=== PATIENT | female | born 1970 | race Caucasian/White ===

== ENCOUNTER 2018-06-29 09:52 | Emergency (ER) | payer OTHER ==
[2018-06-29] MEDS ORDERED: TRAMADOL HCL 50 MG TAB ONE (12:47)
--- NOTE | 2018-06-29 13:12 | RAD REPORT ---
EXAM DESCRIPTION: RAD - Foot Left 3 View - 06/29/2018 12:01 pm CLINICAL HISTORY: Fall 2 weeks earlier with persistent foot pain COMPARISON: None. FINDINGS: No fracture, dislocation or periosteal reaction. No acute or destructive bony process. Mi nimal degenerative change at the first MTP joint. No pathologic bone process. No plantar or Achilles spurring. No air or foreign body in the soft tissues. IMPRESSION: Negative left foot examination for acute or significant finding.
--- NOTE | 2018-06-29 13:19 | EDPHYS ---
Physician Documentation [facility] Name: Roxane Bhakta Age: 48 yrs Sex: Female : 1970 Arrival Date: 06/29/2018 Time: 09:58 Bed 5 Private MD: ED Physician Chalo Blanco HPI: 06/29 13:00 This 48 yrs old Female presents to ER via Ambulatory with complaints of Right pm1 Knee Injury, Left Foot Injury. 13:00 The patient presents with pain, that is acute. The complaints affect the left foot. pm1 Context: The problem was sustained at home, resulted from a mis-step by the patient, the patient can fully bear weight, the patient is able to ambulate. Modifying factors: The symptoms are alleviated by nothing, the symptoms are aggravated by nothing. Associated signs and symptoms: Pertinent negatives: calf tenderness, fever, numbness, swelling, tingling, vomiting. Severity of symptoms: in the emergency department the symptoms are unchanged. history of right knee buckling. The patient has not recently seen a physician. Two weeks ago the patient was stepping down from her trailer and right knee buckled and she planted her left foot. Patient able to walk and reports her right knee is not bad and she is mainly concerned about her left foot. No head injury, headache, neck pain, LOC. 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 - Social history:: Smoking status: Patient uses tobacco products, smokes one-half pack cigarettes per day. - Ebola Screening: : No symptoms or risks identified at this time. ROS: 13:00 MS/extremity: Positive for pain, of the left foot. pm1 13:00 Constitutional: Negative for fever, chills, and weight loss, Neck: Negative for injury, pain, and swelling, Cardiovascular: Negative for chest pain, palpitations, and edema, Respiratory: Negative for shortness of breath, cough, wheezing, and pleuritic chest pain, Abdomen/GI: Negative for abdominal pain, nausea, vomiting, diarrhea, and constipation, Back: Negative for injury and pain, Skin: Negative for injury, rash, and discoloration. 13:00 Neuro: Negative for headache, weakness, numbness, tingling, and seizure. Exam: 13:00 Constitutional: This is a well developed, well nourished patient who is awake, alert, pm1 and in no acute distress. Head/Face: Normocephalic, atraumatic. Neck: Trachea midline, no thyromegaly or masses palpated, and no cervical lymphadenopathy. Supple, full range of motion without nuchal rigidity, or vertebral point tenderness. No Meningismus. Chest/axilla: Normal chest wall appearance and motion. Nontender with no deformity. No lesions are appreciated. Cardiovascular: Regular rate and rhythm with a normal S1 and S2. No gallops, murmurs, or rubs. Normal PMI, no JVD. No pulse deficits. Respiratory: Lungs have equal breath sounds bilaterally, clear to auscultation and percussion. No rales, rhonchi or wheezes noted. No increased work of breathing, no retractions or nasal flaring. Abdomen/GI: Soft, non-tender, with normal bowel sounds. No distension or tympany. No guarding or rebound. No evidence of tenderness throughout. Back: No spinal tenderness. No costovertebral tenderness. Full range of motion. Skin: Warm, dry with normal turgor. Normal color with no rashes, no lesions, and no evidence of cellulitis. 13:00 Musculoskeletal/extremity: Extremities: grossly normal except: noted in the lateral side of left foot: tenderness, There is no evidence of ecchymosis, erythema, swelling, ROM: intact in all extremities, Circulation is intact in all extremities. Sensation intact. 13:00 Neuro: Orientation: is normal, Motor: moves all fours. Vital Signs: 10:15 BP 117 / 78; Pulse 65; Resp 18; Temp 97.3; Pulse Ox 100% ; Weight 99.79 kg; Height 5 sv ft. 4 in. (162.56 cm); Pain 7/10; 11:37 BP 113 / 58; Pulse 66; Resp 18; Pulse Ox 100% on R/A; hj 10:15 Body Mass Index 37.76 (99.79 kg, 162.56 cm) sv MDM: 10:48 Patient medically screened. pm1 11:05 ED course: Patient offered x-ray of right knee. Patient refused. Patient is only pm1 concerned about her left foot pain, not her knee. 12:49 Data reviewed: vital signs. Data interpreted: Pulse oximetry: on room air is 100 %. pm1 Interpretation: normal. 13:17 Counseling: I had a detailed discussion with the patient and/or guardian regarding: the pm1 historical points, exam findings, and any diagnostic results supporting the discharge/admit diagnosis, radiology results, the need for outpatient follow up, to return to the emergency department if symptoms worsen or persist or if there are any questions or concerns that arise at home. 06/29 11:05 Order name: Foot Left 3 View XRAY; Complete Time: 13:17 pm1 Administered Medications: 12:37 Drug: traMADol 50 mg Route: PO; hj 12:41 Follow up: Response: No adverse reaction; Pain is decreased hj Disposition: 06/29/18 13:18 Discharged to Home. Impression: Other sprain of left foot. - Condition is Stable. - Discharge Instructions: Foot Sprain. - Prescriptions for Tramadol 50 mg Oral Tablet - take 1 tablet by ORAL route every 8 hours as needed; 12 tablet. - Medication Reconciliation Form, Thank You Letter, Prescription Opioid Use form. - Follow up: Emergency Department; When: As needed; Reason: Worsening of condition. Follow up: Private Physician; When: 2 - 3 days; Reason: Recheck today's complaints, Continuance of care, Re-evaluation by your physician. - Problem is new. - Symptoms have improved. Addendum: 07/01/2018 13:25 Co-signature as Attending Physician, Chalo Blanco MD I agree with the assessment and k dr plan of care. Signatures: Dispatcher [employer] EDKetty Benton RN RN sv Rittger, Kevin, MD MD [facility] Taz Marley RN RN Himanshu Blair NP INDEX EDITOR pm1 Corrections: (The following items were deleted from the chart) 06/29 13:26 13:18 06/29/2018 13:18 Discharged to Home. Impression: Other sprain of left foot. hj Condition is Stable. Forms are Medication Reconciliation Form, Thank You Letter, Antibiotic Education, Prescription Opioid Use. Follow up: Emergency Department; When: As needed; Reason: Worsening of condition. Follow up: Private Physician; When: 2 - 3 days; Reason: Recheck today's complaints, Continuance of care, Re-evaluation by your physician. Problem is new. Symptoms have improved. pm1
--- NOTE | 2018-06-29 13:19 | ER ---
Nurse's Notes [facility] Name: Roxane Bhakta Age: 48 yrs Sex: Female : 1970 Arrival Date: 06/29/2018 Time: 09:58 Bed 5 Private MD: Diagnosis: Other sprain of left foot Presentation: 06/29 10:13 Presenting complaint: Patient states: fell about 2 weeks ago and injured her right knee sv and left foot. Transition of care: patient was not received from another setting of care. Onset of symptoms was June 15, 2018. Care prior to arrival: None. 10:13 Method Of Arrival: Ambulatory sv 10:13 Acuity: VADIM 4 sv 10:31 Risk Assessment: Do you want to hurt yourself or someone else?. hj 10:34 Initial Sepsis Screen: Does the patient meet any 2 criteria? No. Patient's initial hj sepsis screen is negative. Does the patient have a suspected source of infection? No. Patient's initial sepsis screen is negative. Triage Assessment: 10:13 General: Appears in no apparent distress. uncomfortable, obese, Behavior is calm, sv cooperative, appropriate for age. Pain: Complains of pain in left foot and right knee Pain currently is 7 out of 10 on a pain scale. Neuro: Level of Consciousness is awake, alert, obeys commands, Oriented to person, place, time, situation, Moves all extremities. Gait is steady. Respiratory: Respiratory effort is even, unlabored, Respiratory pattern is regular, symmetrical. 10:35 Musculoskeletal: Reports pain in right leg and left foot and right knee. Injury hj Description: fall. 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 - Social history:: Smoking status: Patient uses tobacco products, smokes one-half pack cigarettes per day. - Ebola Screening: : No symptoms or risks identified at this time. Screenin:35 Abuse screen: Denies threats or abuse. Denies injuries from another. Nutritional hj screening: No deficits noted. Tuberculosis screening: No symptoms or risk factors identified. Fall Risk Fall in past 12 months (25 points). Assessment: 11:00 Reassessment: see triage assessment;. hj 11:36 Reassessment: Patient and/or family updated on plan of care and expected duration. Pain hj level reassessed. Patient is alert, oriented x 3, equal unlabored respirations, skin warm/dry/pink. awaiting xray;. Vital Signs: 10:15 BP 117 / 78; Pulse 65; Resp 18; Temp 97.3; Pulse Ox 100% ; Weight 99.79 kg; Height 5 sv ft. 4 in. (162.56 cm); Pain 7/10; 11:37 BP 113 / 58; Pulse 66; Resp 18; Pulse Ox 100% on R/A; hj 10:15 Body Mass Index 37.76 (99.79 kg, 162.56 cm) sv ED Course: 09:58 Patient arrived in ED. as 10:13 Triage completed. sv 10:15 Arm band placed on. sv 10:30 Taz Marley RN is Primary Nurse. hj 10:35 Patient has correct armband on for positive identification. Bed in low position. Call hj light in reach. Side rails up X 1. 10:48 Himanshu Ruiz NP is PHCP. pm1 10:48 Chalo Blanco MD is Attending Physician. pm1 12:01 Foot Left 3 View XRAY In Process Unspecified. EDMS 13:25 No provider procedures requiring assistance completed. Patient did not have IV access hj during this emergency room visit. Administered Medications: 12:37 Drug: traMADol 50 mg Route: PO; hj 12:41 Follow up: Response: No adverse reaction; Pain is decreased hj Outcome: 13:18 Discharge ordered by . pm1 13:26 Discharged to home ambulatory. hj 13:26 Condition: stable 13:26 Discharge instructions given to patient, Instructed on discharge instructions, follow up and referral plans. medication usage, Demonstrated understanding of instructions, follow-up care, medications, Prescriptions given X 1. 13:26 Patient left the ED. hj Signatures: Dispatcher [employer] EDMS Ketty Chery RN RN sv Martinez, Amelia as Joaquin, Henry, RN RN hj Marinas, Patrick, NP CRANE CREW SUPERVISOR pm1
== END 2018-06-29 13:26 | disposition home or self-care (01) ==
LOC: ER 09:52
DX: S93.692A Other sprain of left foot, initial encounter (principal); X58.XXXA Exposure to other specified factors, initial encounter; Y93.01 Activity, walking, marching and hiking; Y92.89 Other specified places as the place of occurrence of the external cause; N18.6 End stage renal disease; F17.210 Nicotine dependence, cigarettes, uncomplicated; Z88.1 Allergy status to other antibiotic agents; Z88.3 Allergy status to other anti-infective agents; Z85.3 Personal history of malignant neoplasm of breast; Z85.41 Personal history of malignant neoplasm of cervix uteri; Z90.13 Acquired absence of bilateral breasts and nipples
CPT/HCPCS: 99283

== ENCOUNTER 2018-07-05 17:36 | Observation (INO) | payer OTHER ==
[2018-07-05 18:54] LABS: Absolute Lymphocytes (CBC) 0.7 K/uL (0.7-4.9); Absolute Monocytes 0.3 K/uL (0.1-1.3); Absolute Neutrophil 1.8 K/uL (1.8-8.0); Basophils % 1.2 % (0-1.3); Eosinophils % 3.4 % (0-4.4); Lymphocytes % 25.4 % (15.3-44.8); MCH 21.7 pg (27.0-35.0); MCV 71.6 fL (80-100); MPV 9.7 fL (7.6-11.3); Monocytes % 10.3 % (3.3-12.3); RBC Red Blood Cell Count 2.78 M/uL (3.86-4.86)
[2018-07-05 18:57] LABS: Hematocrit 19.9 % (36.0-45.0)
[2018-07-05 18:59] LABS: Albumin 3.3 g/dL (3.4-5.0); Bilirubin Direct 0.3 mg/dL (0-0.2); Bilirubin Total 0.8 mg/dL (0.2-1.0); Potassium 3.7 mmol/L (3.5-5.1); Protein, Total 7.1 g/dL (6.4-8.2)
[2018-07-05 19:38] LABS: Anisocytosis 1+; Blood Morphology Comment NOTED (NOT SEEN); Hypochromasia 1+; Platelet Estimate DECR
[2018-07-05 19:40] LABS: Elliptocytes 1+; Poikilocytosis 1+; Polychromasia SLIGHT; Spherocyte FEW
--- NOTE | 2018-07-05 19:50 | ER ---
Nurse's Notes [facility] Name: Roxane Bhakta Age: 48 yrs Sex: Female : 1970 Arrival Date: 07/05/2018 Time: 17:39 Bed 8 Private MD: out of town, doctor Diagnosis: Acute Anemia ;Other cirrhosis of liver-Non alcoholic steatohepetosis Presentation: 07/05 17:51 Presenting complaint: Patient states: Reports that she was told to come to nearest ER aj for blood transfusion after having low HGB 5.8, and PLT 45 reported by her GI doctor. Denies blood in stool or dizziness. Transition of care: patient was not received from another setting of care. Onset of symptoms was July 05, 2018. Risk Assessment: Do you want to hurt yourself or someone else? Patient reports no desire to harm self or others. Initial Sepsis Screen: Does the patient meet any 2 criteria? No. Patient's initial sepsis screen is negative. Does the patient have a suspected source of infection? No. Patient's initial sepsis screen is negative. Care prior to arrival: None. 17:51 Method Of Arrival: Ambulatory 17:51 Acuity: VADIM 3 Triage Assessment: 17:53 General: Appears in no apparent distress. comfortable, Behavior is calm, cooperative, aj appropriate for age. Pain: Denies pain. Neuro: Level of Consciousness is awake, alert, obeys commands, Oriented to person, place, time, situation, Appropriate for age. Respiratory: Airway is patent Respiratory effort is even, unlabored, Respiratory pattern is regular, symmetrical. GI: Abdomen is round. Derm: Skin is intact, is healthy with good turgor, Skin is pink, warm \T\ dry. normal. 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 - Social history:: Smoking status: Patient uses tobacco products, smokes one-half pack cigarettes per day. - Ebola Screening: : Patient negative for fever greater than or equal to 101.5 degrees Fahrenheit, and additional compatible Ebola Virus Disease symptoms Patient denies exposure to infectious person Patient denies travel to an Ebola-affected area in the 21 days before illness onset No symptoms or risks identified at this time. Screenin:19 Abuse screen: Denies threats or abuse. Denies injuries from another. Nutritional bp screening: No deficits noted. Tuberculosis screening: No symptoms or risk factors identified. Fall Risk None identified. Assessment: 18:14 General: Appears in no apparent distress. comfortable, obese, Behavior is calm, bp cooperative, appropriate for age. Pain: Denies pain. Neuro: Level of Consciousness is awake, alert, obeys commands, Oriented to person, place, time, situation, Appropriate for age. Cardiovascular: Rhythm is sinus rhythm. Respiratory: Airway is patent Respiratory effort is even, unlabored, Respiratory pattern is regular, symmetrical. GI: No signs and/or symptoms were reported involving the gastrointestinal system. : No signs and/or symptoms were reported regarding the genitourinary system. EENT: No deficits noted. Derm: No signs and/or symptoms reported regarding the dermatologic system. Musculoskeletal: Circulation, motion, and sensation intact. Range of motion: intact in all extremities. 18:37 Reassessment: ALL CURRENT ORDERS COMPLETED, RESULTS PENDING. bp Vital Signs: 17:53 BP 153 / 70; Pulse 95; Resp 19; Temp 97.6; Pulse Ox 100% on R/A; Weight 99.79 kg; aj Height 5 ft. 4 in. (162.56 cm); 18:37 BP 135 / 67; Pulse 84; Resp 14; Pulse Ox 100% ; bp 17:53 Body Mass Index 37.76 (99.79 kg, 162.56 cm) aj ED Course: 17:39 Patient arrived in ED. mr 17:39 out of town, doctor is Private Physician. mr 17:52 Triage completed. aj 17:53 Arm band placed on right wrist. Patient placed in an exam room. aj 17:58 Daljit Patel, ISMAEL is Primary Nurse. bp 18:01 Leobardo Sabillon PA is PHCP. jr8 18:01 Rafael Riddle MD is Attending Physician. jr8 18:14 Inserted saline lock: 20 gauge in left antecubital area, using aseptic technique. Blood bp collected. 18:19 Patient has correct armband on for positive identification. Placed in gown. Bed in low bp position. Call light in reach. Side rails up X2. 19:49 Shannen Jacobsen MD is Hospitalizing Provider. jr8 Administered Medications: No medications were administered Outcome: 19:50 Decision to Hospitalize by Provider. jr8 21:32 Patient left the ED. fc Signatures: Nguyen Das, ISMAEL RN Emerald Islas Felicia, RN RN fc Leobardo Sabillon PA PA jr8 Daljit Patel, ISMAEL RN bp
--- NOTE | 2018-07-05 19:50 | EDPHYS ---
Physician Documentation [facility] Name: Roxane Bhakta Age: 48 yrs Sex: Female : 1970 Arrival Date: 07/05/2018 Time: 17:39 Bed 8 Private MD: out of town, doctor ED Physician Rafael Riddle HPI: 07/05 19:43 This 48 yrs old Female presents to ER via Ambulatory with complaints of jr8 Abnormal Lab Results. 19:43 Patient sent by PCP for Hgb check. Stated that it was low along with her platelet jr8 count. History of cirrhosis of the liver secondary to KNIGHT. Has had banding and upper GI bleed in past an has had to have transfusion. Stated that other then mild fatigue feels about baseline. Denies gross lower GI bleeding, hematemesis, or black tarry stools . Severity of symptoms: At their worst the symptoms were mild in the emergency department the symptoms are unchanged. The patient has experienced a previous episode. The patient has not recently seen a physician. 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 - Social history:: Smoking status: Patient uses tobacco products, smokes one-half pack cigarettes per day. - Ebola Screening: : Patient negative for fever greater than or equal to 101.5 degrees Fahrenheit, and additional compatible Ebola Virus Disease symptoms Patient denies exposure to infectious person Patient denies travel to an Ebola-affected area in the 21 days before illness onset No symptoms or risks identified at this time. ROS: 19:43 Eyes: Negative for injury, pain, redness, and discharge, ENT: Negative for injury, jr8 pain, and discharge, Neck: Negative for injury, pain, and swelling, Cardiovascular: Negative for chest pain, palpitations, and edema, Respiratory: Negative for shortness of breath, cough, wheezing, and pleuritic chest pain, Abdomen/GI: Negative for abdominal pain, nausea, vomiting, diarrhea, and constipation, Back: Negative for injury and pain, MS/Extremity: Negative for injury and deformity, Skin: Negative for injury, rash, and discoloration, Neuro: Negative for headache, weakness, numbness, tingling, and seizure. Exam: 19:43 Eyes: Pupils equal round and reactive to light, extra-ocular motions intact. Lids and jr8 lashes normal. Conjunctiva and sclera are non-icteric and not injected. Cornea within normal limits. Periorbital areas with no swelling, redness, or edema. ENT: Nares patent. No nasal discharge, no septal abnormalities noted. Tympanic membranes are normal and external auditory canals are clear. Oropharynx with no redness, swelling, or masses, exudates, or evidence of obstruction, uvula midline. Mucous membranes moist. Neck: Trachea midline, no thyromegaly or masses palpated, and no cervical lymphadenopathy. Supple, full range of motion without nuchal rigidity, or vertebral point tenderness. No Meningismus. Cardiovascular: Regular rate and rhythm with a normal S1 and S2. No gallops, murmurs, or rubs. Normal PMI, no JVD. No pulse deficits. 2 + lower extremity edema Respiratory: Lungs have equal breath sounds bilaterally, clear to auscultation and percussion. No rales, rhonchi or wheezes noted. No increased work of breathing, no retractions or nasal flaring. Abdomen/GI: Soft, non-tender, with normal bowel sounds. No distension or tympany. No guarding or rebound. No evidence of tenderness throughout. Back: No spinal tenderness. No costovertebral tenderness. Full range of motion. MS/ Extremity: Pulses equal, no cyanosis. Neurovascular intact. Full, normal range of motion. Neuro: Awake and alert, GCS 15, oriented to person, place, time, and situation. Cranial nerves II-XII grossly intact. Motor strength 5/5 in all extremities. Sensory grossly intact. Cerebellar exam normal. Normal gait. 19:43 Skin: Appearance: Color: normal in color, dusky, Temperature: normal temperature, Moisture: normal moisture. Vital Signs: 17:53 BP 153 / 70; Pulse 95; Resp 19; Temp 97.6; Pulse Ox 100% on R/A; Weight 99.79 kg; aj Height 5 ft. 4 in. (162.56 cm); 18:37 BP 135 / 67; Pulse 84; Resp 14; Pulse Ox 100% ; bp 17:53 Body Mass Index 37.76 (99.79 kg, 162.56 cm) aj MDM: 18:01 Patient medically screened. 8 19:46 Data reviewed: vital signs, nurses notes, lab test result(s). Data interpreted: Pulse jr8 oximetry: on room air is 100 %. Interpretation: normal. Counseling: I had a detailed discussion with the patient and/or guardian regarding: the historical points, exam findings, and any diagnostic results supporting the discharge/admit diagnosis, lab results, the need for further work-up and treatment in the hospital. Physician consultation: Shannen Jacobsen MD was called at 19:46, was contacted at 19:46, regarding admission, to the medical/surgical unit. consult, patient's condition, and will see patient would like consultation with Dr. Louie. 07/05 18:02 Order name: Basic Metabolic Panel; Complete Time: 19:05 rust 07/05 18:02 Order name: CBC with Diff; Complete Time: 19:41 rust 07/05 18:02 Order name: Creatinine for Radiology; Complete Time: 19:05 rust 07/05 18:02 Order name: Hepatic Function; Complete Time: 19:05 rust 07/05 18:02 Order name: Lipase; Complete Time: 19:05 rust 07/05 18:02 Order name: TS rust 07/05 18:02 Order name: IV Saline Lock; Complete Time: 18:20 rust 07/05 18:02 Order name: Labs collected and sent; Complete Time: 18:20 rust 07/05 19:34 Order name: Manual Differential; Complete Time: 19:41 EDFL 07/05 19:40 Order name: Packed RBC Leukored -1 EDFL 07/05 19:59 Order name: ABO/RH no charge; Complete Time: 20:12 EDFL 07/05 20:20 Order name: CONS Physician Consult EDMS Administered Medications: No medications were administered Disposition: 07/06 07:19 Co-signature as Attending Physician, Rafael Riddle MD. rn Disposition: 07/05/18 19:50 Hospitalization ordered by Shannen Jacobsen for Observation. Preliminary diagnosis are Acute Anemia , Other cirrhosis of liver - Non alcoholic steatohepetosis . - Bed requested for Telemetry/MedSurg (observation). - Status is Observation. fc - Condition is Stable. - Problem is new. - Symptoms are unchanged. UTI on Admission? No Signatures: Dispatcher [employer] EDFL Rere Chau RN ISMAEL Nguyen Das RN Angie Cordova RN RN Rafael Riddle MD MD rn Roszak, Josh, PA PA jr8 Corrections: (The following items were deleted from the chart) 07/05 19:34 18:58 CBC Smear Scan ordered. EDFL EDFL 19:58 19:50 Hospitalization Ordered by Shannen Jacobsen MD for Observation. Preliminary mw diagnosis is Acute Anemia ; Other cirrhosis of liver - Non alcoholic steatohepetosis . Bed requested for Telemetry/MedSurg (observation). Status is Observation. Condition is Stable. Problem is new. Symptoms are unchanged. UTI on Admission? No. jr8 21:32 19:58 07/05/2018 19:50 Hospitalization Ordered by Shannen Jacobsen MD for Observation. fc Preliminary diagnosis is Acute Anemia ; Other cirrhosis of liver - Non alcoholic steatohepetosis . Bed requested for Telemetry/MedSurg (observation). Status is Observation. Condition is Stable. Problem is new. Symptoms are unchanged. UTI on Admission? No. mw
--- NOTE | 2018-07-05 20:26 | P.HP ---
Certification for Inpatient Patient admitted to: Observation With expected LOS: <2 Midnights Practitioner: I am a practitioner with admitting privileges, knowledge of patient current condition, hospital course, and medical plan of care. Services: Services provided to patient in accordance with Admission requirements found in Title 42 Section 412.3 of the Code of Federal Regulations Patient History Date of Service: 07/05/18 Reason for admission: Anemia History of Present Illness: Ms Bhakta is a 48-year-old woman with history of breast cancer, cervical cancer, end-stage liver disease secondary to KNIGHT, who recently moved from [place] to this area. She had done a routine laboratory work ordered by her PCP in [place], and she was called with a critical lab result, her hemoglobin was 5.8. She was directed to come to the nearest ER for evaluation. The patient was complaining of weakness since about 1 month ago. She denied any chest pain, abdominal pain, bloody or dark stools. She also denied any bloody vomiting. In 2014 she had a GI bleed episode. At that time she was diagnosed with esophageal varices, requiring several banding procedures. Since so she has not had any further GI bleed. Repeated lab work in our hospital showed hemoglobin of 6.0. The patient is hemodynamically stable without any sign of acute bleeding. The patient shows me her previous most recent lab work done in February of this year, and at that time the hemoglobin was 6.3. Home medications list reviewed: Yes - Past Medical/Surgical History -: End-stage liver disease -: Knight -: Breast cancer -: Cervical cancer -: Tobacco abuse Past Surgical History: Reviewed- Non-Contributory - Family History Family History: Reviewed- Non-Contributory - Social History Smoking Status: Current every day smoker Counseled patient to stop smoking for: less than 10 minutes Alcohol use: No CD- Drugs: No Place of Residence: Home Review of Systems 10-point ROS is otherwise unremarkable Physical Examination - Physical Exam General: Alert, In no apparent distress HEENT: Atraumatic, PERRLA, Mucous membr. moist/pink, EOMI, Sclerae nonicteric Neck: Supple, 2+ carotid pulse no bruit, No LAD, Without JVD or thyroid abnormality Respiratory: Clear to auscultation bilaterally, Normal air movement Cardiovascular: Regular rate/rhythm, Normal S1 S2 Gastrointestinal: Normal bowel sounds, No tenderness Musculoskeletal: No tenderness Integumentary: No rashes Neurological: Normal speech, Normal strength at 5/5 x4 extr, Normal tone, Normal affect Lymphatics: No axilla or inguinal lymphadenopathy - Studies Laboratory Data (last 24 hrs) 07/05/18 18:15: Creatinine 0.70 07/05/18 18:15: WBC 2.9 L, Hgb 6.0 L*, Hct 19.9 L*, Plt Count 33 L* 07/05/18 18:15: Sodium 145, Potassium 3.7, BUN 9, Creatinine 0.70, Glucose 108 H , Total Bilirubin 0.8, AST 21, ALT 19, Alkaline Phosphatase 131 H, Lipase 474 H Assessment and Plan - Problems (Diagnosis) (1) End stage liver disease Current Visit: Yes Status: Acute (2) Anemia Current Visit: Yes Status: Acute Qualifiers: Anemia type: other cause Other causes of anemia: chronic disease, other Qualified Code(s): D63.8 - Anemia in other chronic diseases classified elsewhere (3) Chronic pain Current Visit: Yes Status: Acute Qualifiers: Chronic pain type: chronic pain syndrome Qualified Code(s): G89.4 - Chronic pain syndrome (4) Tobacco abuse Current Visit: Yes Status: Acute - Plan The patient will be admitted to the hospital due to anemia. She is hemodynamically stable. She has been ordered a couple of units of PRBCs to be transfused. The patient has profound local PCP or GI specialist for follow-up. There is no obvious sign of acute bleeding. However since the patient has history of previous GI bleed due to esophageal varices, she warranted to have GI specialist evaluation. - Advance Directives Does patient have a Living Will: No Does patient have a Durable POA for Healthcare: No - Code Status/Comfort Care Code Status Assessed: Yes Code Status: Full Code
[2018-07-05] MEDS ORDERED: ACETAMINOPHEN 325 MG TABLET ONE (21:05)
[2018-07-05] MEDS ORDERED: ONDANSETRON 4 MG/2 ML VIAL IV PRN (21:25)
== END 2018-07-05 22:21 | disposition left against medical advice (07) ==
LOC: ER 17:36 → ERHOLD 20:29 → 2ND 20:43
PROVIDERS: ADMIT Internal Medicine; ATTEND Internal Medicine
PROC: 30233N1 Transfusion of Nonautologous Red Blood Cells into Peripheral Vein, Percutaneous Approach (ICD-10-PCS; principal; 2018-07-05)
DX: D64.9 Anemia, unspecified (principal); K72.90 Hepatic failure, unspecified without coma; F17.210 Nicotine dependence, cigarettes, uncomplicated; Z85.3 Personal history of malignant neoplasm of breast; Z85.41 Personal history of malignant neoplasm of cervix uteri
CPT/HCPCS: 36415; 80048; 80076; 83690; 85025; 86850; 86900; 86901; 99284; G0378

== ENCOUNTER 2018-08-18 14:36 | Emergency (ER) | payer OTHER ==
[2018-08-18] MEDS ORDERED: NA CHLORIDE 0.9% 1,000 ML ONE (15:48)
[2018-08-18 15:54] LABS: Absolute Monocytes 0.5 K/uL (0.1-1.3); Absolute Neutrophil 2.4 K/uL (1.8-8.0); Basophils % 1.6 % (0-1.3); Eosinophils % 3.7 % (0-4.4); Hematocrit 20.3 % (36.0-45.0); Lymphocytes % 23.6 % (15.3-44.8); MCH 22.8 pg (27.0-35.0); MCV 73.2 fL (80-100); MPV 10.3 fL (7.6-11.3); Monocytes % 12.9 % (3.3-12.3); RBC Red Blood Cell Count 2.78 M/uL (3.86-4.86)
[2018-08-18 16:15] LABS: BUN Blood Urea Nitrogen 11 mg/dL (7-18); Bicarbonate 24 mmol/L (21-32); Glucose Level 94 mg/dL (74-106); Potassium 3.6 mmol/L (3.5-5.1); Sodium Level 143 mmol/L (136-145)
[2018-08-18] MEDS ORDERED: NA CHLORIDE 0.9% 250 ML ONE ×2 (16:53→19:20)
[2018-08-18] MEDS ORDERED: DIPHENHYDRAMINE 50 MG/ML VIAL ONE (17:12)
[2018-08-18 18:05] LABS: Anisocytosis 2+; Blood Morphology Comment NOTED (NOT SEEN); Hypochromasia 1+; Platelet Estimate DECR; Urine White Blood Cell Casts OK
[2018-08-18 23:04] LABS: Hematocrit 23.1 % (36.0-45.0)
--- NOTE | 2018-08-18 23:11 | EDPHYS ---
Physician Documentation [facility] Name: Roxane Bhakta Age: 48 yrs Sex: Female : 1970 Arrival Date: 08/18/2018 Time: 14:39 Bed 5 Private MD: ED Physician Chalo Blanco HPI: 08/18 15:35 This 48 yrs old Female presents to ER via Ambulatory with complaints of snw Abnormal Lab Results. 15:35 Onset: The symptoms/episode began/occurred called from [facility] post snw lab results to come to ED. Reported low H/H. Associated signs and symptoms: Pertinent positives: shortness of breath, fatigue. Modifying factors: The patient symptoms are alleviated by remaining still, rest, the patient symptoms are aggravated by activity. It is unknown whether or not the patient has had similar symptoms in the past. The patient has been recently seen by a physician: the patient's primary care provider, with similar presenting complaints, lab tests were done, and was sent to the [facility] Emergency Department for further evaluation. Pt is from [place] but here until the of her Grandchild. Pt states she sees a GI specialist in [place]. Is awaiting placement on Liver transplant list. MELD scores have not quite been high enough as of yet. Pt dx with non-alcoholic fatty infiltration of the liver. Historical: - Allergies: 15:09 Bactrim; ph 15:09 Erythromycin; ph - PMHx: 15:09 breast cancer; cervical cancer; Cirrhosis; non-alcoholic; end stage liver disease; ph Migraines; - PSHx: 15:09 Hysterectomy; Double mastectomy; ph - Immunization history:: Adult Immunizations unknown. - Social history:: Smoking status: unknown. - Ebola Screening: : No symptoms or risks identified at this time. ROS: 15:34 Constitutional: Negative for fever, chills, and weight loss, + fatigue Eyes: Negative snw for injury, pain, redness, and discharge, ENT: Negative for injury, pain, and discharge, Neck: Negative for injury, pain, and swelling, Cardiovascular: Negative for chest pain, palpitations, and edema, Respiratory: positive for mild shortness of breath, negative for cough, wheezing, and pleuritic chest pain, Abdomen/GI: Negative for abdominal pain, nausea, vomiting, diarrhea, and constipation, Back: Negative for injury and pain, : Negative for injury, bleeding, discharge, and swelling, MS/Extremity: Negative for injury and deformity, Skin: Negative for injury, rash, and discoloration, Neuro: Negative for headache, weakness, numbness, tingling, and seizure. 15:34 Abdomen/GI: Negative for diarrhea, constipation, hematemesis, black/tarry stool, rectal bleeding. Exam: 15:33 Head/Face: Normocephalic, atraumatic. snw 15:33 ENT: Nares patent. No nasal discharge, no septal abnormalities noted. Tympanic membranes are normal and external auditory canals are clear. Oropharynx with no redness, swelling, or masses, exudates, or evidence of obstruction, uvula midline. Mucous membranes moist. Neck: Trachea midline, no thyromegaly or masses palpated, and no cervical lymphadenopathy. Supple, full range of motion without nuchal rigidity, or vertebral point tenderness. No Meningismus. Chest/axilla: Normal chest wall appearance and motion. Nontender with no deformity. No lesions are appreciated. Cardiovascular: Regular rate and rhythm with a normal S1 and S2. No gallops, murmurs, or rubs. Normal PMI, no JVD. No pulse deficits. Respiratory: Lungs have equal breath sounds bilaterally, clear to auscultation and percussion. No rales, rhonchi or wheezes noted. No increased work of breathing, no retractions or nasal flaring. Abdomen/GI: Soft, non-tender, with normal bowel sounds. No distension or tympany. No guarding or rebound. No evidence of tenderness throughout. Back: No spinal tenderness. No costovertebral tenderness. Full range of motion. MS/ Extremity: Pulses equal, no cyanosis. Neurovascular intact. Full, normal range of motion. 15:33 Neuro: Awake and alert, GCS 15, oriented to person, place, time, and situation. Cranial nerves II-XII grossly intact. Motor strength 5/5 in all extremities. Sensory grossly intact. Cerebellar exam normal. Normal gait. 15:33 Constitutional: The patient appears alert, awake, obese, pale. 15:33 Eyes: Pupils: no acute changes, Extraocular movements: no acute changes, Conjunctiva: normal, Corneas: are normal, Sclera: icterus, is present. 15:33 Skin: Appearance: dusky. Vital Signs: 15:09 BP 131 / 67; Pulse 82; Resp 18; Temp 98.3; Pulse Ox 99% on R/A; Weight 108.86 kg; ph Height 5 ft. 4 in. (162.56 cm); 16:19 BP 119 / 57; Pulse 86; Resp 18; Pulse Ox 100% on R/A; mh5 17:15 BP 118 / 59; Pulse 71; Resp 16; Temp 97.5(TE); Pulse Ox 100% ; hb 17:30 BP 116 / 64; Pulse 74; Resp 16; Pulse Ox 100% on R/A; hb 17:45 BP 119 / 56; Pulse 77; Resp 16; Temp 97.6(TE); Pulse Ox 100% on R/A; hb 18:15 BP 133 / 63; Pulse 75; Resp 16; Pulse Ox 100% ; sv 23:19 BP 138 / 65; Pulse 86; Resp 18; Temp 97.6(TE); Pulse Ox 100% on R/A; Pain 0/10; ak1 15:09 Body Mass Index 41.20 (108.86 kg, 162.56 cm) ph MDM: 15:13 Patient medically screened. snw 23:10 Data reviewed: vital signs, nurses notes. Data interpreted: Pulse oximetry: on room air snw is 100 %. Interpretation: normal. Counseling: I had a detailed discussion with the patient and/or guardian regarding: the historical points, exam findings, and any diagnostic results supporting the discharge/admit diagnosis, lab results, the need for outpatient follow up, to return to the emergency department if symptoms worsen or persist or if there are any questions or concerns that arise at home. Response to treatment: the patient's symptoms have markedly improved after treatment, and as a result, I will discharge patient, pt to return to ED immediately for any symptoms of anemia, bleeding, dark stools, concerns. Follow up at the [facility] Tuesday for reeval of H/H. 08/18 15:13 Order name: TS snw 08/18 15:13 Order name: CBC with Diff snw 08/18 15:13 Order name: Chem 7 snw 08/18 16:04 Order name: CBC with Automated Diff; Complete Time: 18:07 EDMS 08/18 16:30 Order name: Basic Metabolic Panel; Complete Time: 16:51 [facility] 08/18 16:32 Order name: Type and Screen [facility] 08/18 18:06 Order name: CBC Smear Scan; Complete Time: 18:07 [facility] 08/18 22:22 Order name: Hemoglobin [facility] 08/18 22:22 Order name: Hematocrit [facility] 08/18 23:07 Order name: Hemoglobin; Complete Time: 23:08 [facility] 08/18 23:07 Order name: Hematocrit; Complete Time: 23:08 [facility] 08/18 15:13 Order name: Oxygen; Complete Time: 16:03 snw 08/18 16:11 Order name: Consent for Blood Transfusion; Complete Time: 17:02 snw 08/18 16:11 Order name: IV Saline Lock; Complete Time: 16:31 snw Administered Medications: 15:55 Drug: NS 0.9% 1000 ml Route: IV; Rate: 75 ml/hr; Site: left antecubital; hb 17:10 Follow up: Response: No adverse reaction; IV Status: IV converted to saline lock hb 17:10 Drug: Benadryl 12.5 mg Route: IVP; Site: left antecubital; hb 17:50 Follow up: Response: No adverse reaction hb Disposition: 08/18/18 23:10 Discharged to Home. Impression: Anemia in chronic diseases classified elsewhere, Other cirrhosis of liver. - Condition is Stable. - Discharge Instructions: Anemia, Nonspecific, Blood Transfusion, Adult. - Medication Reconciliation Form, Thank You Letter, Antibiotic Education, Prescription Opioid Use form. - Follow up: Private Physician; When: 2 - 3 days; Reason: Recheck today's complaints, Continuance of care, Re-evaluation by your physician. Follow up: Emergency Department; When: As needed; Reason: Worsening of condition. Addendum: 08/20/2018 09:20 Co-signature as Attending Physician, Chalo Blanco MD I agree with the assessment and k dr plan of care. Signatures: Dispatcher [employer] [facility] Chalo Blanco MD MD [facility] Domi Shannon, LABOR CREW SUPERVISOR-C LABOR CREW SUPERVISOR-[employer] Makayla Frost, RN RN ak1 Maya Quiles, RN RN Yuridia Lerma, RN RN hb Corrections: (The following items were deleted from the chart) 08/18 15:39 15:35 Pt is from [place] but here until the of her Grandchild. Pt states she snw sees a GI specialist in [place]. Is awaiting placement on Liver transplant list. MELD scores have not quite been high enough as of yet. wendy 23:25 23:10 08/18/2018 23:10 Discharged to Home. Impression: Anemia in chronic diseases ak1 classified elsewhere; Other cirrhosis of liver. Condition is Stable. Discharge Instructions: Anemia, Nonspecific, Blood Transfusion, Adult. Forms are Medication Reconciliation Form, Thank You Letter, Antibiotic Education, Prescription Opioid Use. Follow up: Private Physician; When: 2 - 3 days; Reason: Recheck today's complaints, Continuance of care, Re-evaluation by your physician. Follow up: Emergency Department; When: As needed; Reason: Worsening of condition. wendy
--- NOTE | 2018-08-18 23:11 | ER ---
Nurse's Notes [facility] Name: Roxane Bhakta Age: 48 yrs Sex: Female : 1970 Arrival Date: 08/18/2018 Time: 14:39 Bed 5 Private MD: Diagnosis: Anemia in chronic diseases classified elsewhere;Other cirrhosis of liver Presentation: 08/18 15:06 Presenting complaint: Patient states: " I had blood drawn on Tue and they called me and ph said to come up here for a transfusion." Reports hgb 5.2, hct 19, and plt 42,c/o fatigue and SOB, reports hx of end stage liver. Transition of care: patient was not received from another setting of care. Onset of symptoms was August 18, 2018. Risk Assessment: Do you want to hurt yourself or someone else? Patient reports no desire to harm self or others. Initial Sepsis Screen: Does the patient meet any 2 criteria? No. Patient's initial sepsis screen is negative. Does the patient have a suspected source of infection?. Care prior to arrival: None. 15:06 Method Of Arrival: Ambulatory ph 15:06 Acuity: VADIM 2 ph Historical: - Allergies: 15:09 Bactrim; ph 15:09 Erythromycin; ph - PMHx: 15:09 breast cancer; cervical cancer; Cirrhosis; non-alcoholic; end stage liver disease; ph Migraines; - PSHx: 15:09 Hysterectomy; Double mastectomy; ph - Immunization history:: Adult Immunizations unknown. - Social history:: Smoking status: unknown. - Ebola Screening: : No symptoms or risks identified at this time. Screenin:40 Abuse screen: Denies threats or abuse. Denies injuries from another. Nutritional hb screening: No deficits noted. Tuberculosis screening: No symptoms or risk factors identified. Fall Risk None identified. Assessment: 15:30 General: Appears in no apparent distress. Behavior is calm, cooperative. Pain: Denies hb pain. Neuro: Level of Consciousness is awake, alert, obeys commands, Oriented to person, place, time, situation. Cardiovascular: Capillary refill < 3 seconds Patient's skin is warm and dry. Respiratory: Airway is patent Trachea midline Respiratory effort is even, unlabored, Respiratory pattern is regular, symmetrical, Breath sounds are clear bilaterally. GI: No signs and/or symptoms were reported involving the gastrointestinal system. : No signs and/or symptoms were reported regarding the genitourinary system. EENT: No signs and/or symptoms were reported regarding the EENT system. Derm: Skin is intact, is healthy with good turgor. Musculoskeletal: No signs and/or symptoms reported regarding the musculoskeletal system. 16:30 Reassessment: Patient appears in no apparent distress at this time. No changes from hb previously documented assessment. Patient and/or family updated on plan of care and expected duration. Pain level reassessed. Patient is alert, oriented x 3, equal unlabored respirations, skin warm/dry/pink. 17:15 Reassessment: First unit PRBCs started. hb 17:30 Reassessment: Patient appears in no apparent distress at this time. No changes from hb previously documented assessment. Patient and/or family updated on plan of care and expected duration. Pain level reassessed. Patient is alert, oriented x 3, equal unlabored respirations, skin warm/dry/pink. Blood infusion continues. 18:30 Reassessment: Patient appears in no apparent distress at this time. No changes from hb previously documented assessment. Patient and/or family updated on plan of care and expected duration. Pain level reassessed. Patient is alert, oriented x 3, equal unlabored respirations, skin warm/dry/pink. 19:35 Reassessment: Patient appears in no apparent distress at this time. No changes from ak1 previously documented assessment. pt 2nd RBC started at 1925, pt tolerating well. provider stated to redraw H\\T\\H 2 hours post infusion. will continue to monitor, see transfusion records for complete vitals. 20:41 Reassessment: 2nd unit RBC completed. will redraw post H\\T\\H in 2 hours and assess if pt ak1 should need more units. 22:21 Reassessment: Patient appears in no apparent distress at this time. No changes from ak1 previously documented assessment. Patient and/or family updated on plan of care and expected duration. Pain level reassessed. Patient is alert, oriented x 3, equal unlabored respirations, skin warm/dry/pink. redraw of H\\T\\H. Vital Signs: 15:09 BP 131 / 67; Pulse 82; Resp 18; Temp 98.3; Pulse Ox 99% on R/A; Weight 108.86 kg; ph Height 5 ft. 4 in. (162.56 cm); 16:19 BP 119 / 57; Pulse 86; Resp 18; Pulse Ox 100% on R/A; mh5 17:15 BP 118 / 59; Pulse 71; Resp 16; Temp 97.5(TE); Pulse Ox 100% ; hb 17:30 BP 116 / 64; Pulse 74; Resp 16; Pulse Ox 100% on R/A; hb 17:45 BP 119 / 56; Pulse 77; Resp 16; Temp 97.6(TE); Pulse Ox 100% on R/A; hb 18:15 BP 133 / 63; Pulse 75; Resp 16; Pulse Ox 100% ; sv 23:19 BP 138 / 65; Pulse 86; Resp 18; Temp 97.6(TE); Pulse Ox 100% on R/A; Pain 0/10; ak1 15:09 Body Mass Index 41.20 (108.86 kg, 162.56 cm) ph ED Course: 14:39 Patient arrived in ED. as 15:08 Triage completed. ph 15:10 Arm band placed on Patient placed in an exam room. ph 15:12 Domi Shannon FNP-C is PHCP. snw 15:12 Chalo Blanco MD is Attending Physician. snw 15:24 EKG done, by fire control technician g. reviewed by Domi ELIZONDO. sm3 15:45 Initial lab(s) drawn, by sd, sent to lab. T\\T\\S collected, blood band applied to patient. sv Inserted saline lock: 20 gauge in left forearm, using aseptic technique. Blood collected. Flushed left forearm with 5 ml normal saline. 16:30 Yuridia Lerma, ISMAEL is Primary Nurse. hb 17:02 Chem 7 Sent. sv 17:02 CBC with Diff Sent. sv 17:02 TS Sent. sv 19:36 Patient has correct armband on for positive identification. Placed in gown. Bed in low ak1 position. Side rails up X 1. shelter monitor on. Pulse ox on. NIBP on. 22:57 Hematocrit Sent. ak1 22:57 Hemoglobin Sent. ak1 23:19 No provider procedures requiring assistance completed. IV discontinued, intact, ak1 bleeding controlled, No redness/swelling at site. Pressure dressing applied. Administered Medications: 15:55 Drug: NS 0.9% 1000 ml Route: IV; Rate: 75 ml/hr; Site: left antecubital; hb 17:10 Follow up: Response: No adverse reaction; IV Status: IV converted to saline lock hb 17:10 Drug: Benadryl 12.5 mg Route: IVP; Site: left antecubital; hb 17:50 Follow up: Response: No adverse reaction hb Outcome: 23:10 Discharge ordered by MD. nguyen 23:19 Discharged to home ambulatory, with family. ak1 23:19 Condition: good 23:19 Discharge instructions given to patient, Instructed on discharge instructions, follow up and referral plans. Demonstrated understanding of instructions, follow-up care. 23:25 Patient left the ED. ak1 Signatures: Ketty Chery RN RN Domi Trinidad, LACQUER PIN PRESS OPERATOR-C LACQUER PIN PRESS OPERATOR-[place] Shaikh Amber, RN RN ak1 Maya Quiles RN RN Yuridia Lerma RN RN Jeremiah, Hilda [facility] Adry Mora 3 Corrections: (The following items were deleted from the chart) 17:53 17:15 BP 118 / 59; Pulse 71bpm; Resp 16bpm; Pulse Ox 100%; hb hb 17:53 17:45 BP 119 / 56; Pulse 77bpm; Resp 16bpm; Pulse Ox 100% RA; hb hb
--- NOTE | 2018-08-19 08:30 | EKG ---
Test Date: 2018-08-18 Test Time: 15:18:31 Home Furnishings Sales Representative: SHANNEN MEASUREMENT RESULTS: Intervals: Rate: 81 LA: 166 QRSD: 82 QT: 394 QTc: 457 Robbins: P: 55 LA: 166 QRS: 31 T: 46 INTERPRETIVE STATEMENTS: Normal sinus rhythm Normal ECG No previous ECG available for comparison Electronically Signed On 08-19-18 08:29:16 LANDSCAPE ENGINEER by James Simms
== END 2018-08-18 23:25 | disposition home or self-care (01) ==
LOC: ER 14:36
PROC: 30233N1 Transfusion of Nonautologous Red Blood Cells into Peripheral Vein, Percutaneous Approach (ICD-10-PCS; principal; 2018-08-18)
DX: K72.90 Hepatic failure, unspecified without coma (principal); D63.8 Anemia in other chronic diseases classified elsewhere; K74.69 Other cirrhosis of liver; Z88.1 Allergy status to other antibiotic agents; Z88.3 Allergy status to other anti-infective agents; Z85.3 Personal history of malignant neoplasm of breast; Z85.41 Personal history of malignant neoplasm of cervix uteri
CPT/HCPCS: 36415; 80048; 85014; 85018; 85025; 86850; 86900; 86901; 93005; 96361; 96374; 99284; J7030; P9016